=== PATIENT | female | born 1935 | race African-American/Black ===

== ENCOUNTER 2017-02-21 10:02 | Inpatient (IN) ==
[2017-02-21] MEDS ORDERED: ASPIRIN 325 MG TABLET PO STA (10:58)
[2017-02-21] MEDS ORDERED: ENOXAPARIN 100 MG/ML SYRINGE SUBCUT STA (10:58)
--- NOTE | 2017-02-21 11:01 | EKG Report ---
Stationary ECG Study [facility] ER Test Date: 02/21/2017 10:30:45 AM Pat Name: MARGUERITE MAGALLANES Department: Room: Gender: F Etcher Machine: Maritza Ennis : 1935 Requested by: Star Falcon Order Number: [id number] Reading MD: JEREMIAH NAJERA Intervals [place] Rate: 70 P: 88 FL: 215 QRS: 76 QRSD: 83 T: 78 QT: 342 QTc: 364 Interpretive Statements SINUS RHYTHM WITH FIRST DEGREE AV BLOCK Electronically Signed On 02-21-17 17:17:43 CDT by JEREMIAH NAJERA [email or web address]
--- NOTE | 2017-02-21 11:14 | XRay Report ---
Exam: XR chest 1V portable Indication: Midline chest pain Comparison study: Prior chest radiograph 11/25/2016 Findings: Cardiac silhouette and mediastinal contours appear similar to prior. Elevation right hemidiaphragm is essentially unchanged. No definite focal consolidation, pneumothorax or pleural effusion. Impression: No acute cardiopulmonary process. No significant change from prior. PROCEDURE INTERPRETED AT [facility] DEPARTMENT OF RADIOLOGY Final Report Signed by: Fabien Wyatt
[2017-02-21 11:43] LABS: Basophils % 0.7 % (0.0-0.8); Eosinophils # 0.1 10*3/uL (0.0-0.87); Eosinophils % 2.1 % (0.00-10.9); Hematocrit 36.3 VOL% (35.7-47.0); Hemoglobin 11.6 GM/DL (12.0-16.0); Immature Granulocytes % 1.1 %; Immature Granulocytes Absolute 0.06 #; Lymphocytes # 0.9 10*3/uL (1.4-4.0); Lymphocytes % 17.4 % (21.3-54.2); Mean Corpuscular Hemoglobin 23 PG (27-34); Mean Corpuscular Volume 70.5 FL (87-102); Mean Platelet Volume 11.3 FL (9.6-12.0); Monocytes # 0.4 10*3/uL (0.11-0.8); Monocytes % 7.3 % (1.7-12.7); Neutrophils # 3.8 10*3/uL (1.4-7.4); Neutrophils % 71.4 % (38.7-73.9); Platelet Count 187 T/CUMM (130-400); Red Blood Count 5.15 MC/CUMM (3.8-5.5); Red Cell Distribution Width 15.2 % (9.3-17.3); White Blood Count 5.3 T/CUMM (4-12)
[2017-02-21 11:52] LABS: PT Patient Result 10.8 SECS
[2017-02-21] MEDS ORDERED: ENOXAPARIN 100 MG/ML SYRINGE SUBCUT ONE (11:52)
[2017-02-21] MEDS ORDERED: ASPIRIN 325 MG TABLET ONE (11:52)
[2017-02-21 12:12] LABS: Alanine Aminotransferase 15 U/L (13-56); Albumin 3.5 G/DL (3.4-5.0); Alkaline Phosphatase 103 U/L (45-117); Aspartate Amino Transferase 10 U/L (0-37); Bilirubin,Total < 0.39 MG/DL (0.2-1.0); Blood Urea Nitrogen 21 MG/DL (7-18); Calcium 8.9 MG/DL (8.5-10.1); Glucose 324 MG/DL (74-106); Magnesium 1.7 MG/DL (1.8-2.4); Osmolality,Calculated 294.4 MOS/KG (273-304); Potassium 3.4 MMOL/L (3.5-5.1); Sodium 140 MMOL/L (136-145); Total Protein 7.4 G/DL (6.4-8.3)
--- NOTE | 2017-02-21 12:34 | Emergency Department Note ---
Venkata Calderón Rolonda, am scribing for, and in the presence of, Star Rodriguez MD 11:12. Jennifer Calderón Phillip K, MD, personally performed the services described in this documentation, ascribed by Jaqui Hastings in my presence, and it is both accurate and complete . Arrival - Arrival Chief Complaint: Chest Pain Stated Complaint: FEELS WEAK,FATIGUE, CHEST PAIN ED Nursing Triage Note: pt ambulatory to triage with c/o having chest pain onset last . pt states having pain to left shoulder and between shoulder blades, pt states she is weak and gives out and cant walk very far. Mode of Arrival: Ambulatory Limitations: No Limitations Source: Patient, Old Records Reviewed, RN Notes Reviewed Time Seen by Provider: 02/21/17 10:48 - History of Present Illness HPI Narrative: Pt is an 81 y/o female who ambulated to the ED for further evaluation of chest pain with an onset of x5 days ago. Pt has a PMHx of SVT, HTN, DM, and HLD. Pt has a PSHx of hysterectomy and a stress test. Nurses' note states that pt is weak and cannot ambulate very far due to "giving out." She confirms that nothing worsens that pain and has associated sxs sweating but denies fever, chills, cough, and lower extremity swelling. Pt is f/u by Dr. Cardozo. No other complaint/pain in ED. Onset (ago): day(s) Consistency: constant Severity: moderate Severity scale (1-10): 5 Date of Last Menstrual Period: hyst Allergies/Adverse Reactions: Allergies Allergy/AdvReac Type Severity Reaction Status Date / Time No Known Allergies Allergy Verified 02/21/17 10:25 Home Medications: Home Medications Medication Instructions Recorded Confirmed Type Carvedilol [Coreg] 25 mg PO BID 11/25/16 02/21/17 History Digoxin 250 mcg PO DAILY 11/25/16 02/21/17 History Insulin Detemir [Levemir FlexPen] 20 unit SUBCUT QAM 11/25/16 02/21/17 History Lisinopril 20 mg PO BID 11/25/16 02/21/17 History Lovastatin 40 mg PO DAILY 11/25/16 02/21/17 History Metformin HCl 1,000 mg PO BID 11/25/16 02/21/17 History NIFEdipine [Nifedipine ER] 30 mg PO BEDTIME 11/25/16 02/21/17 History Levothyroxine Tab [Synthroid Tab] 50 mcg PO QAM 02/21/17 02/21/17 History Review of System - Review of System 12 point system: reviewed and no additional remarkable complaints except as stated - Review of System Constitutional: Present: diaphoresis. Absent: chills, fever Eyes: Absent: pain, redness Head/Ears/Nose/Throat: Absent: earache, epistaxis Respiratory: Absent: cough Cardiovascular: Present: chest pain Gastrointestinal: Absent: abdominal pain, nausea, vomiting, diarrhea Genitourinary female: Absent: dysuria Musculoskeletal: Absent: arm pain, back pain, leg pain, neck pain Skin: Absent: rash Neurological: Absent: headache, weakness Psychiatric: Absent: anxiety Medical,Surgical,& Family Hx - Medical History Cardio: History of: Cardiac Dysrhythmia (tachycardia), Hypertension Endocrine: History of: Diabetes Mellitus (IDDM), Dyslipidemia - Surgical History Reproductive Surgeries: Surgical HX of;: Hysterectomy - Social History Smoking Status: Former smoker Frequency of Alcohol Use: None Type of Drug Use: None Exam Vital Signs: Vital Signs Temperature 97.9 F 02/21/17 10:21 Pulse Rate 74 02/21/17 10:21 Respiratory Rate 18 02/21/17 10:21 Blood Pressure 138/60 02/21/17 10:21 O2 Sat by Pulse Oximetry 99 02/21/17 10:21 - General General appearance: alert, in no apparent distress - Head Head exam: Present: atraumatic, normocephalic - Eye Eye exam: Present: PERRL, EOMI - ENT ENT exam: Present: mucous membranes moist. Absent: mucous membranes dry - Neck Neck exam: Present: full ROM. Absent: tenderness - Chest Chest inspection: Present: symmetric chest wall rise. Absent: tenderness - Respiratory Respiratory exam: Present: normal lung sounds bilaterally. Absent: wheezes - Cardiovascular Cardiovascular exam: Present: regular rate, normal rhythm, normal heart sounds. Absent: bradycardia - Abdominal Exam Abdominal exam: Present: soft, normal bowel sounds. Absent: tenderness - Extremities Exam Extremities exam: Present: full ROM. Absent: tenderness - Back Exam Back exam: Present: full ROM. Absent: tenderness - Neurological Exam Neurological exam: Present: alert, oriented X3, CN II-XII intact - Psychiatric Psychiatric exam: Present: normal affect, normal mood - Skin Skin exam: Present: warm, dry, intact, normal color. Absent: rash Course Course Narrative: Patient will be admitted to Dr. Cardozo and cardiology consult. Results - Labs CBC & BMP: 02/21/17 11:38 02/21/17 11:38 Lab Results: I have reviewed the patients labs Labs: Laboratory Tests 02/21/17 02/21/17 11:38 11:38 WBC 5.3 RBC 5.15 Hgb 11.6 L Hct 36.3 MCV 70.5 L MCH 23 L Plt Count 187 Lymph % (Auto) 17.4 L Lymph # (Auto) 0.9 L INR 1.0 PT Patient/Control Mix 10.8 Laboratory Tests 02/21/17 11:38 Sodium 140 Potassium 3.4 L Chloride 104 Carbon Dioxide 24 Anion Gap 15.4 H BUN 21 H Creatinine 1.30 H GFR Calculation 41 Glucose 324 H Magnesium 1.7 L Globulin 3.9 H Albumin/Globulin Ratio 0.8 L - EKG EKG results: interpreted by GUCCI, sinus rhythm (Nonspecific ST-T changes inferior and lateral leads.) - Diagnostic Findings Procedure: Chest x-ray: report reviewed by me (No acute cardiopulmonary process. No significant change from prior.) Disposition Clinical Impression: Chest pain, Rule out unstable angina Case discussed with: patient Disposition: Still a Patient Condition: Guarded Additional Instructions: Admit for further workup.
[2017-02-21] MEDS ORDERED: ONDANSETRON 4 MG/2 ML VIAL IV PRN (14:13)
[2017-02-21] MEDS ORDERED: ACETAMINOPHEN 325 MG TABLET PO PRN (14:13)
--- NOTE | 2017-02-21 16:42 | Internal Med History&Physical ---
Assessment and Plan (1) Chest pain Status: Acute Assessment and plan: 81-year-old female admitted to acute care * Chest pain. Patient presents with atypical type chest pain. It has been going on for several days. Her enzymes have been negative. She has nonspecific EKG changes. She does have history of sinus tachycardia in the past and has been on digoxin. Her dig level is high. Her symptoms could be also related to orthostatic changes. Will check her blood pressure lying and standing. Will consult cardiology to evaluate the patient. * Hypertension. Blood pressure has been on the higher side. Will watch. * Diabetes. Will hold her Metformin. We will start her on sliding scale * Hypokalemia. Will replace her potassium and mag * Will check urinalysis on the patient. Will also do a set of blood cultures. * Hypothyroidism. Will check TSH on the patient * Discussed with the patient Current Visit: Yes (2) Diabetes Status: Chronic Current Visit: Yes (3) History of paroxysmal supraventricular tachycardia Status: Chronic Current Visit: Yes (4) Hyperlipidemia Status: Chronic Current Visit: Yes (5) Hypertension Status: Chronic Current Visit: Yes (6) Hypothyroidism Status: Chronic Current Visit: Yes History of Present Illness Chief complaint: Chest discomfort History of present illness: Ms. Saeed is a 81 year old female with history of multiple medical problems including diabetes, hypertension, hypothyroidism, hyperlipidemia, gastroesophageal reflux disease and previous tachycardia. She came to the emergency room with chest and left shoulder discomfort off and on for last 4-5 days. He is having pain in the left shoulder and between the shoulder blades. She feels quite weak and is having difficulty walking more than short distances. She feels like she is going to give out. There is no relieving or aggravating factors with her pain. It is associated with sweating. She denies any fever chills. She denies any nausea, vomiting, diarrhea. Her blood sugars have been doing fairly well. Patient lives alone at home. She used to drink and smoke in the remote past Home Medications Medication Instructions Recorded Confirmed Type Carvedilol [Coreg] 25 mg PO BID 11/25/16 02/21/17 History Digoxin 250 mcg PO DAILY 11/25/16 02/21/17 History Insulin Detemir [Levemir FlexPen] 20 unit SUBCUT QAM 11/25/16 02/21/17 History Lisinopril 20 mg PO BID 11/25/16 02/21/17 History Lovastatin 40 mg PO DAILY 11/25/16 02/21/17 History Metformin HCl 1,000 mg PO BID 11/25/16 02/21/17 History NIFEdipine [Nifedipine ER] 30 mg PO BEDTIME 11/25/16 02/21/17 History Levothyroxine Tab [Synthroid Tab] 50 mcg PO QAM 02/21/17 02/21/17 History Allergies Allergy/AdvReac Type Severity Reaction Status Date / Time No Known Allergies Allergy Verified 02/21/17 10:25 Medical,Surgical,& Family Hx - Medical History Cardio: History of: Cardiac Dysrhythmia (tachycardia), Hypertension Endocrine: History of: Diabetes Mellitus (IDDM), Dyslipidemia Respiratory: History of: Respiratory Problems (lung mass surgery) Gastrointestinal: History of: GERD Musculoskeletal: History of: Musculoskeletal Problems (arthritis) - Surgical History Thoracic Surgeries: Surgical HX of;: Lobectomy (Patient had a wedge resection of her right lung in the past it was benign) HEENT Surgeries: Surgical HX of: Eye Surgery (Bilateral cataract surgery), Thyroid Surgery (Goiter removed) Reproductive Surgeries: Surgical HX of;: Hysterectomy - Family History Family History: Reports;: Family Diabetes (Brother), Family Heart Disease ( Mother), Family Hypertension (Brother), Family Stroke - Social History Smoking Status: Former smoker Frequency of Alcohol Use: None Type of Drug Use: None Marital Status: Single Lives With:: Alone Functional capacity: independent ambulation 12 point system: reviewed and no additional remarkable complaints except as stated (As mentioned in HPI) Exam - Constitutional Vitals: Period Temp Pulse Resp BP Sys/Mckeon Pulse Ox Last 24 Hr 97.7 F-97.9 F 58-74 12-22 138-194/60-84 99-100 Exam: Examination: GENERAL: NAD. HEENT: PERRLA. EOMI. Mucous membranes are moist. NECK: Neck is supple. No JVD. No carotid bruit. No thyromegaly. CVS: Regular rate and rhythm. S1 and S2 are normal. Systolic ejection at left lower sternal border. RESPIRATORY: Lungs are clear. No rales or rhonchi. ABDOMEN: Soft and nontender. Bowel sounds are present. No hepatosplenomegaly. EXT: No edema. Peripheral pulses are present. DIRECTOR OF GRADUATE ADMISSIONS: Patient is awake, alert and oriented to time place and person. Cranial nerves II through XII are grossly intact. Motor strength is 4/5 SKIN: Warm and dry. MSK: No obvious deformity. Results - Labs CBC & BMP: 02/21/17 11:38 02/21/17 11:38 Lab Results: I have reviewed the past 24 hour labs
[2017-02-21] MEDS ORDERED: GLUCAGON 1 MG VIAL IM PRN (16:50)
[2017-02-21] MEDS ORDERED: DEXTROSE 50% 25 GM/50 ML VIAL IV PRN (16:50)
[2017-02-21] MEDS ORDERED: cloNIDine 0.1 MG TABLET PO PRN (17:02)
[2017-02-21 17:44] LABS: Apearance,Urine CLEAR (Clear); Bilirubin,Urine Negative (Negative); Blood, Urine Negative (Negative); Glucose,Urine (UA) >=500 mg/dL (Negative); Ketones,Urine Negative (Negative); Nitrite,Urine Negative (Negative); Protein,Urine 30 MG/DL; RBC,Urine <1 /HPF (0-4); Squamous Epithelial Cell,Urine Occasional /HPF (0-10); Urine Color Colorless (Yellow); Urine Specific Gravity 1.005 (1.001-1.035); Urine Urobilinogen < 2.0 EU/DL (0.2-1.0); WBC,Urine <1 /HPF (0-6)
[2017-02-21 19:35] LABS: Free T4 (Free Thyroxine) 1.18 NG/DL (0.76-1.46); Thyroid Stimulating Hormone 0.576 uIU/ml (0.358-3.74)
[2017-02-21] MEDS: CARVEDILOL 25 MG TABLET PO SCH (22:01)
[2017-02-21] MEDS: MAGNESIUM CHLORIDE 64 MG TABLET PO SCH (22:01)
[2017-02-21] MEDS: LISINOPRIL 20 MG TABLET PO SCH (22:01)
[2017-02-21] MEDS: POTASSIUM CHLORIDE 8 MEQ CAPSULE PO SCH (22:01)
[2017-02-21] MEDS: DOCUSATE SODIUM 100 MG CAPSULE PO SCH (22:01)
[2017-02-21] MEDS: INSULIN LISPRO 100 UNIT/ML SUBCUT SCH (22:11)
[2017-02-22 05:27] LABS: Basophils % 0.7 % (0.0-0.8); Eosinophils # 0.2 10*3/uL (0.0-0.87); Eosinophils % 3.7 % (0.00-10.9); Hematocrit 32.1 VOL% (35.7-47.0); Hemoglobin 10.4 GM/DL (12.0-16.0); Immature Granulocytes % 1.3 %; Immature Granulocytes Absolute 0.06 #; Lymphocytes # 1.1 10*3/uL (1.4-4.0); Lymphocytes % 24.1 % (21.3-54.2); Mean Corpuscular HGB Conc 32.4 GM/DL (32-36); Mean Corpuscular Hemoglobin 23 PG (27-34); Mean Corpuscular Volume 70.1 FL (87-102); Mean Platelet Volume 12.1 FL (9.6-12.0); Monocytes # 0.4 10*3/uL (0.11-0.8); Monocytes % 8.9 % (1.7-12.7); Neutrophils # 2.8 10*3/uL (1.4-7.4); Neutrophils % 61.3 % (38.7-73.9); Platelet Count 175 T/CUMM (130-400); Red Blood Count 4.58 MC/CUMM (3.8-5.5); White Blood Count 4.6 T/CUMM (4-12)
[2017-02-22 05:54] LABS: Hypochromasia 2+; Microcytosis 1+; Ovalocytes Few; Platelet Estimate Adequate
[2017-02-22 05:55] LABS: Calcium 8.8 MG/DL (8.5-10.1); Potassium 3.5 MMOL/L (3.5-5.1)
--- NOTE | 2017-02-22 06:01 | EKG Report ---
Stationary ECG Study [facility] ER Test Date: 02/21/2017 1:49:01 PM Pat Name: MARGUERITE MAGALLANES Department: Room: 288 Gender: F Binder Lockstitch: : 1935 Requested by: Star Falcon Order Number: [id number] Manny MD: ZAY HUSSEIN Intervals [place] Rate: 69 P: 87 NE: 244 QRS: 75 QRSD: 93 T: 70 QT: 350 QTc: 368 Interpretive Statements SINUS RHYTHM WITH PROLONGED NE INTERVAL Electronically Signed On 02-22-17 09:26:34 CDT by ZAY HUSSEIN [email or web address]
[2017-02-22] MEDS: LEVOTHYROXINE 50 MCG TABLET PO SCH (06:56)
[2017-02-22] MEDS: DOCUSATE SODIUM 100 MG CAPSULE PO SCH ×2 (09:38→21:25)
[2017-02-22] MEDS: LOVASTATIN 20 MG TABLET PO SCH (09:38)
[2017-02-22] MEDS: PANTOPRAZOLE 40 MG TABLET PO SCH (09:38)
[2017-02-22] MEDS: MAGNESIUM CHLORIDE 64 MG TABLET PO SCH ×2 (09:39→21:25)
[2017-02-22] MEDS: POTASSIUM CHLORIDE 8 MEQ CAPSULE PO SCH ×2 (09:39→21:25)
[2017-02-22] MEDS: LISINOPRIL 20 MG TABLET PO SCH ×2 (09:39→21:25)
[2017-02-22] MEDS: INSULIN GLARGINE 100 UNIT/ML SUBCUT SCH (09:40)
[2017-02-22] MEDS: INSULIN LISPRO 100 UNIT/ML SUBCUT SCH ×4 (09:41→21:26)
--- NOTE | 2017-02-22 09:52 | Internal Med Progress Note ---
Assessment and Plan (1) Chest pain Status: Acute Assessment and plan: 81-year-old female admitted to acute care * Chest pain. Atypical pain. Initial enzymes negative. Cardiology consult pending * Hypertension. Better control * Diabetes. Will hold her Metformin. We will start her on sliding scale * Hypokalemia. Better. Dig level is still high * Will check urinalysis on the patient. Will also do a set of blood cultures. * Hypothyroidism. Continue medication * Discussed with the patient and family member Current Visit: Yes (2) Diabetes Status: Chronic Current Visit: Yes (3) History of paroxysmal supraventricular tachycardia Status: Chronic Current Visit: Yes (4) Hyperlipidemia Status: Chronic Current Visit: Yes (5) Hypertension Status: Chronic Current Visit: Yes (6) Hypothyroidism Status: Chronic Current Visit: Yes Internal Medicine - PN: Subj Interval history: She is feeling much better today. She does not have any pressure or pain in her chest. She denies any nausea or vomiting Exam (Progress Note) - Constitutional Vitals: Period Temp Pulse Resp BP Sys/Mckeon Pulse Ox Last 24 Hr 97.1 F-98.4 F 58-76 12-22 104-194/53-84 97-100 Exam: Examination: GENERAL: NAD. HEENT: PERRLA. EOMI. NECK: Neck is supple. CVS: Regular rate and rhythm. Systolic ejection at left lower sternal border. RESPIRATORY: Lungs are clear. ABDOMEN: Soft and nontender. EXT: No edema. Peripheral pulses are present. FAMILY CONSUMER SCIENCE TEACHER: Nonfocal SKIN: Warm and dry. MSK: No obvious deformity. Results - Labs CBC & BMP: 02/22/17 04:49 02/22/17 04:49 Lab Results: I have reviewed the past 24 hour labs
[2017-02-22] MEDS: CARVEDILOL 25 MG TABLET PO SCH ×2 (09:53→21:25)
--- NOTE | 2017-02-22 10:00 | Cardiology Consult Note ---
Jimmy Calderón Vanessa, RN, am scribing for, and in the presence of, Lazaro Zimmer MD 09:59. Assessment and Plan - Time spent with patient Time spent with patient: Greater than 30 minutes (Due to assessment, planning, documentation, medication review) (1) Chest pain Status: Acute Assessment and plan: EKG and lab work negative for ischemic finding at this time. We will follow serial cardiac biomarkers and check EKG in the morning. Current Visit: Yes (2) Hypertension Status: Chronic Assessment and plan: Review of records shows that BP has been relatively well controlled on current regimen. However, she is hypertensive today. Will adjust antihypertensive regimen as needed. Current Visit: Yes (3) Hyperlipidemia Status: Chronic Assessment and plan: Routinely takes lipid-lowering agent. Will check lipid panel in the morning. Current Visit: Yes (4) Diabetes Status: Chronic Assessment and plan: Glucose 324 per blood work earlier in the ER. Will defer primary management to internal medicine. Current Visit: Yes (5) History of paroxysmal supraventricular tachycardia Status: Chronic Assessment and plan: She does have occasional palpitations, but this is been controlled with digoxin. Digoxin currently on hold. Digoxin level 2.5 today. Follow-up in the morning. Current Visit: Yes (6) Hypothyroidism Status: Chronic Assessment and plan: She routinely takes Synthroid. Check TSH. Current Visit: Yes History of Present Illness - Data of Consult Patient: known to practice within the last 3 years Consult date: 02/21/17 Requesting Physician: Star Rodriguez - Consult Narrative Reason for consult: chest pain History of present illness: PRIMARY BENCH REPAIR TECHNICIAN:DR. SNYDER PCP: DR. HERNANDEZ Ms. Saeed is a 81 year old black female risk factors significant for: age, hypertension, hyperlipidemia. She is a former smoker and quit smoking in 1996. Family history includes a sister who has had previous coronary artery bypass grafting. Past medical history include paroxysmal SVT, hypothyroidism and hyperparathyroidism, anemia, aortic sclerosis, dyspepsia. She was last seen at [facility] by Dr. Snyder in August 2016. Blood pressure and lipids were well controlled on current regimen. She complained of some palpitations and arthritic pain in her knees. She was not having any chest pain or anginal complaint, and she was not having any overt symptoms of heart failure. Patient presented to [facility] earlier this morning complaining of chest pain with onset 5 days ago. Described this chest pain as being located in her left shoulder and sometimes epigastric area. Discomfort has been nonradiating, and she has not had any associated symptoms. Patient was admitted to the telemetry unit for observation and rule out, but as there are no beds currently available on the telemetry floor, patient is being housed in the ICU. Patient is not a critical care patient at this time. Cardiology has been asked to see for cardiac workup. EKG and cardiac monitoring reveals some nonspecific ST-T changes but there is no acute ischemic finding and tracings are unchanged from EKG in August. Last echocardiogram on record in July 2015 with normal LV size and systolic function with EF 60-65%, normal diastolic dysfunction, mildly enlarged LA, normal size and function of RV and RA, trace MR and TR, but no significant valvular disease. Myocardial perfusion scan in July 2013 also showed normal LV function and there were no EKG changes or evidence of ischemia. Patient seen and examined in the ICU. She is awake and alert, and she is very pleasant and talkative, somewhat anxious. Denies any current chest pain or shortness of breath. Since arrival to the unit, she is noted to be hypertensive with current BP 187/79. Bedside groundwater monitoring technician shows intermittent bradycardia in the 50s, regular rhythm. Reports she takes her antihypertensives as prescribed without fail. Patient reports she has been very fatigued since also, and she is unable to walk short distances without feeling dyspneic on exertion. She tells me her bathroom is "a hop and a skip" away from her better, and she is having to sit down and rest with this minimal exertion. Unable to identify any aggravating or leading factors for her left shoulder pain and epigastric pain. Reports she has been nauseated daily for about the last week but no vomiting. No cough, fever, chills. No orthopnea, PND, lower extremity edema. Labs reviewed. K+ 3.4, MG +1.7, troponin undetectable, digoxin 2.5. Digoxin is on hold. Patient with exertional dyspnea fatigue nausea found to have a toxic dig level. We are holding her Lanoxin and will check an echo to be certain if not evidence of LV dysfunction that could be explaining some of her symptoms. Her blood pressures are unacceptably high I think at least partly related to stress and anxiety. She is improving and probably can be discharged the next several days. There is not any objective evidence that she is having ischemia. EKG shows dig effect but otherwise is unrevealing. I have discussed in detail the particulars of this case and I have examined the patient and reviewed the patient's chart both current and old. I was directly involved in the patient's evaluation and management and I completely agree with Rosa Isela Weston NP regarding this patient's evaluation and treatment plan. CC: Chuy Hernandez MD - Home Medications and Allergies Home Medications: Home Medications Medication Instructions Recorded Confirmed Type Carvedilol [Coreg] 25 mg PO BID 11/25/16 02/21/17 History Digoxin 250 mcg PO DAILY 11/25/16 02/21/17 History Insulin Detemir [Levemir FlexPen] 20 unit SUBCUT QAM 11/25/16 02/21/17 History Lisinopril 20 mg PO BID 11/25/16 02/21/17 History Lovastatin 40 mg PO DAILY 11/25/16 02/21/17 History Metformin HCl 1,000 mg PO BID 11/25/16 02/21/17 History NIFEdipine [Nifedipine ER] 30 mg PO BEDTIME 11/25/16 02/21/17 History Levothyroxine Tab [Synthroid Tab] 50 mcg PO QAM 02/21/17 02/21/17 History Allergies/Adverse Reactions: Allergies Allergy/AdvReac Type Severity Reaction Status Date / Time No Known Allergies Allergy Verified 02/21/17 10:25 - Constitutional Constitutional: Present: fatigue, weakness. Absent: anorexia, chills, fever(s) , frequent falls, increased appetite, night sweats, weight gain, weight loss - EENT Eyes: Present: requires corrective lense. Absent: blurry vision, loss of vision Ears: Absent: decreased hearing Nose, mouth and throat: Present: sinus pressure. Absent: dysphagia, epistaxis, throat swelling, tongue swelling - Cardiovascular Cardiovascular: Present: dyspnea on exertion. Absent: chest pain at rest, chest pain with activity, claudication, diaphoresis, dyspnea, edema, radiating jaw, neck or arm pain, lightheadedness, orthopnea, palpitations, PND - Respiratory Respiratory: Present: dyspnea on exertion. Absent: cough, dyspnea, hemoptysis, wheezing, change in phlegm color - Gastrointestinal Gastrointestinal: Present: dyspepsia, heartburn, nausea. Absent: constipation, diarrhea, dysphagia, hematemesis, hematochezia, melena, vomiting - Genitourinary Genitourinary: Absent: abnormal vaginal bleeding, dysuria, flank pain, hematuria - Musculoskeletal Musculoskeletal: Absent: arthralgias - Neurological Neurological: Absent: abnormal gait, abnormal speech, confusion, dizziness, syncope, tremor(s) - Psychiatric Psychiatric: Present: anxiety, depression - Endocrine Endocrine: Absent: cold intolerance, heat intolerance - Hematologic/Lymphatic Hematologic/Lymphatic: Absent: easy bleeding, easy bruising Medical,Surgical,& Family Hx - Medical History Cardio: History of: Cardiac Dysrhythmia (tachycardia), Hypertension No history of: CHF, CAD, NC, PVD, Valvular Heart Disease Psychological: History of: Depression Neurology: No history of: Cerebrovascular Accident, Dementia, TIA Endocrine: History of: Diabetes Mellitus (IDDM), Dyslipidemia, Thyroid Disorder Respiratory: History of: Respiratory Problems (lung mass surgery) No history of: Asthma, Bronchitis, COPD, Obstructive Sleep Apnea, Pulmonary Hypertension Renal: History of: Renal Problems (Kidney mass; followed by Dr. Boothe) Gastrointestinal: No history of: Esophageal Varices, Gastrointestinal Bleed, Pancreatitis Musculoskeletal: History of: Musculoskeletal Problems (arthritis) No history of: Degenerative Disk Disease Hematology: History of: Anemia No history of: Blood Transfusion Reaction Reproductive: No history of: Breast Cancer Other: No history of: Cancer - Surgical History Cardiac Surgeries: Patient Denies: Cardiac Catheterization HEENT Surgeries: Surgical HX of: Eye Surgery (cataract) Reproductive Surgeries: Surgical HX of;: Hysterectomy - Social History Smoking Status: Former smoker Frequency of Alcohol Use: None Type of Drug Use: None Functional capacity: independent ambulation Physical Examination Vital Signs Temp Pulse Resp BP Pulse Ox 97.9 F 74 18 138/60 99 02/21/17 10:21 02/21/17 10:21 02/21/17 10:21 02/21/17 10:21 02/21/17 10:21 General: Present: No Apparent Distress, Other (Pleasant and talkative) HEENT: Present: PERRL, Normocephaly. Absent: Jaundice, Pallor Neck: Present: Supple Neck, Midline Trachea, No JVD/HJR, No Masses, Bruit Cardiac: Present: Reg Rate and Rhythm, Systolic Murmur, Bradycardia. Absent: Tachycardia Result/EKG - Labs CBC & BMP: 02/22/17 04:49 02/22/17 04:49 Lab Results: I have reviewed the past 24 hour labs Labs: Laboratory Results - last 24 hr 02/21/17 02/21/17 02/21/17 11:38 11:38 11:38 WBC RBC Hgb Hct MCV MCH MCHC RDW Plt Count MPV Neut % (Auto) Lymph % (Auto) [place] % (Auto) Eos % (Auto) Baso % (Auto) Neut # (Auto) Lymph # (Auto) [place] # (Auto) Eos # (Auto) Baso # (Auto) Immature Gran % Nucleated RBC % Immature Gran # Nucleated RBCs # INR 1.0 PT Patient/Control Mix 10.8 Sodium 140 Potassium 3.4 L Chloride 104 Carbon Dioxide 24 Anion Gap 15.4 H BUN 21 H Creatinine 1.30 H GFR Calculation 41 BUN/Creatinine Ratio 16.00 Glucose 324 H POC Glucose Calculated Osmolality 294.4 Calcium 8.9 Magnesium 1.7 L Total Bilirubin < 0.39 AST 10 ALT 15 Alkaline Phosphatase 103 Troponin I Total Protein 7.4 Albumin 3.5 Globulin 3.9 H Albumin/Globulin Ratio 0.8 L Digoxin 2.50 H* 02/21/17 02/21/17 02/21/17 11:38 11:38 14:42 WBC 5.3 RBC 5.15 Hgb 11.6 L Hct 36.3 MCV 70.5 L MCH 23 L MCHC 32.0 RDW 15.2 Plt Count 187 MPV 11.3 Neut % (Auto) 71.4 Lymph % (Auto) 17.[address] [place] % (Auto) 7.3 Eos % (Auto) 2.1 Baso % (Auto) 0.7 Neut # (Auto) 3.8 Lymph # (Auto) 0.[address] [place] # (Auto) 0.4 Eos # (Auto) 0.1 Baso # (Auto) 0.0 Immature Gran % 1.1 Nucleated RBC % 0.0 Immature Gran # 0.06 Nucleated RBCs # 0.00 INR PT Patient/Control Mix Sodium Potassium Chloride Carbon Dioxide Anion Gap BUN Creatinine GFR Calculation BUN/Creatinine Ratio Glucose POC Glucose 310 H Calculated Osmolality Calcium Magnesium Total Bilirubin AST ALT Alkaline Phosphatase Troponin I < 0.015 Total Protein Albumin Globulin Albumin/Globulin Ratio Digoxin - Diagnostic Findings Procedure: Chest x-ray: image reviewed by me, report reviewed by me (02/21/17: No acute cardiopulmonary process) - EKG EKG results: interpreted by me, no acute changes EKG shows: sinus rhythm IGoran Wesley, MD, personally performed the services described in this documentation, ascribed by Rachelle Marquez RN in my presence, and it is both accurate and complete [id number] .
--- NOTE | 2017-02-22 15:09 | Cardiology Progress Note ---
<Rosa Isela Weston - Last Filed: 02/22/17 14:54> Assessment and Plan - Time spent with patient Time spent with patient: Less than 30 minutes (1) Chest pain Status: Acute Assessment and plan: See plan of care listed below. Current Visit: Yes (2) Hypertension Status: Chronic Assessment and plan: See plan of care listed below. Current Visit: Yes (3) Hyperlipidemia Status: Chronic Assessment and plan: See plan of care listed below. Current Visit: Yes (4) Diabetes Status: Chronic Assessment and plan: See plan of care listed below. Current Visit: Yes (5) History of paroxysmal supraventricular tachycardia Status: Chronic Assessment and plan: See plan of care listed below. Current Visit: Yes (6) Hypothyroidism Status: Chronic Assessment and plan: See plan of care listed below. 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 SNYDER PCP: DR. HERNANDEZ SUMMARY: Ms. Saeed is a 81 year old black female with a history of paroxysmal SVT, hypothyroidism and hyperparathyroidism, anemia, aortic sclerosis, dyspepsia who presented to the hospital with complaints of chest pain, onset 5 days ago. Cardiology was asked to see for cardiac workup. EKG and cardiac monitoring reveals some nonspecific ST-T changes but there is no acute ischemic finding and tracings are unchanged from EKG in August. Last echocardiogram on record in July 2015 with normal LV size and systolic function with EF 60-65% , normal diastolic dysfunction, mildly enlarged LA, normal size and function of RV and RA, trace MR and TR, but no significant valvular disease. Myocardial perfusion scan in July 2013 also showed normal LV function and there were no EKG changes or evidence of ischemia. FEBRUARY 22, 2017 UPDATE: There is not any objective evidence that she is having ischemia. EKG shows dig effect but otherwise is unrevealing. She denies chest pain or shortness of breath today. Her blood pressures are unacceptably high I think at least partly related to stress and anxiety. BP 191/77 today, will increase her dose of Procardia to 60mg PO QHS. ASSESSMENT/PLAN: 1. CHEST PAIN - EKG and lab work negative for ischemic finding at this time. From a cardiology standpoint, when she is discharged, she will need to be scheduled for an outpatient stress test in 1 week with follow up with Dr. Snyder 1 week after stress test. 2. HYPERTENSION - Review of records shows that BP has been relatively well controlled on current regimen. However, she continues to have elevated BP readings today. Will monitor and adjust accordingly. 3. HYPERLIPIDEMIA - Continue lipid lowering agent. 4. DIABETES - Will defer primary management to internal medicine. 5. HISTORY OF PSVT - She does have occasional palpitations, but this is been controlled with digoxin. Digoxin currently on hold. Digoxin level 2.1 today. 6. HYPOTHYROIDISM - FT4/TSH normal, continue synthroid. Exam (Progress Note) - Constitutional Vitals: Period Temp Pulse Resp BP Sys/Mckeon Pulse Ox Last 24 Hr 97.1 F-98.4 F 58-76 12-20 104-191/53-79 97-100 Exam: General: Present: Appears Well, No Apparent Distress. Pleasant and cooperative. Appears comfortable. HEENT: Present: PERRL, Normocephaly, atraumatic. Mucus Membranes Moist. No jaundice noted. Conjunctiva moist and clear, sclerae anicteric Neck: Present: Supple Neck, Midline Trachea, No Masses, No Bruit, No tenderness Cardiac: Present: Regular Rate and Rhythm, Systolic Murmur Lungs: Present: Clear to auscultation bilaterally, no wheeze, rhonchi, rales. Neuro: Present: Awake, alert, and oriented x3. Moves all extremities well without hemiparesis or paralysis. Grossly Intact. Absent: Resting Tremor, Essential Tremor Abdomen: Present: Soft, Active Bowel Sounds, No Masses, Non-Tender, nondistended. No abdominal bruit or thrill noted. Skin: Present: Clear. Absent: Rash, No skin breakdown. Back: Normal inspection, no vertebral tenderness. Musculoskeletal: Present: No Fluid Collection, No Pain, Normal Range of Motion Extremities: Present: Normal Gait, No Clubbing, No Cyanosis, Upper Extr. Pulses 2+, Lower Extr. Pulses 2+, No edema. Capillary refill less than 3 seconds. Result/EKG - Labs CBC & BMP: 02/22/17 04:49 02/22/17 04:49 Lab Results: I have reviewed the past 24 hour labs Labs: Laboratory Results - last 24 hr 02/21/17 02/21/17 02/21/17 15:34 17:25 18:40 WBC RBC Hgb Hct MCV MCH MCHC RDW Plt Count MPV Neut % (Auto) Lymph % (Auto) [place] % (Auto) Eos % (Auto) Baso % (Auto) Neut # (Auto) Lymph # (Auto) [place] # (Auto) Eos # (Auto) Baso # (Auto) Immature Gran % Nucleated RBC % Immature Gran # Nucleated RBCs # Platelet Estimate Hypochromasia Microcytosis Ovalocytes Morphology Comment Sodium Potassium Chloride Carbon Dioxide Anion Gap BUN Creatinine GFR Calculation BUN/Creatinine Ratio Glucose POC Glucose Calculated Osmolality Calcium Troponin I < 0.015 < 0.015 Free T4 TSH 3rd Generation Urine Color Colorless Urine Appearance Clear Urine pH 6.0 Ur Specific Johnson 1.005 Urine Protein 30 Urine Glucose (UA) >=500 Urine Ketones Negative Urine Blood Negative Urine Nitrate Negative Urine Bilirubin Negative Urine Urobilinogen < 2.0 H Urine Leukocytes Negative Urine RBC <1 Urine WBC <1 Ur Squamous Epith Cells Occasional Ur Culture Indicated? Not indicated Digoxin 02/21/17 02/21/17 02/22/17 18:40 21:56 04:49 WBC 4.6 RBC 4.58 Hgb 10.4 L Hct 32.1 L MCV 70.1 L MCH 23 L MCHC 32.4 RDW 15.0 Plt Count 175 MPV 12.1 H Neut % (Auto) 61.3 Lymph % (Auto) 24.1 [place] % (Auto) 8.9 Eos % (Auto) 3.7 Baso % (Auto) 0.7 Neut # (Auto) 2.8 Lymph # (Auto) 1.1 L [place] # (Auto) 0.4 Eos # (Auto) 0.2 Baso # (Auto) 0.0 Immature Gran % 1.3 Nucleated RBC % 0.0 Immature Gran # 0.06 Nucleated RBCs # 0.00 Platelet Estimate Adequate Hypochromasia 2+ Microcytosis 1+ Ovalocytes Few Morphology Comment Sodium Potassium Chloride Carbon Dioxide Anion Gap BUN Creatinine GFR Calculation BUN/Creatinine Ratio Glucose POC Glucose 292 H Calculated Osmolality Calcium Troponin I Free T4 1.18 TSH 3rd Generation 0.576 Urine Color Urine Appearance Urine pH Ur Specific Johnson Urine Protein Urine Glucose (UA) Urine Ketones Urine Blood Urine Nitrate Urine Bilirubin Urine Urobilinogen Urine Leukocytes Urine RBC Urine WBC Ur Squamous Epith Cells Ur Culture Indicated? Digoxin 02/22/17 02/22/17 02/22/17 04:49 04:49 07:56 WBC RBC Hgb Hct MCV MCH MCHC RDW Plt Count MPV Neut % (Auto) Lymph % (Auto) [place] % (Auto) Eos % (Auto) Baso % (Auto) Neut # (Auto) Lymph # (Auto) [place] # (Auto) Eos # (Auto) Baso # (Auto) Immature Gran % Nucleated RBC % Immature Gran # Nucleated RBCs # Platelet Estimate Hypochromasia Microcytosis Ovalocytes Morphology Comment Sodium 143 Potassium 3.5 Chloride 106 Carbon Dioxide 29 Anion Gap 11.5 BUN 23 H Creatinine 0.90 GFR Calculation 63 BUN/Creatinine Ratio 25.00 H Glucose 207 H POC Glucose 321 H Calculated Osmolality 294.0 Calcium 8.8 Troponin I Free T4 TSH 3rd Generation Urine Color Urine Appearance Urine pH Ur Specific Johnson Urine Protein Urine Glucose (UA) Urine Ketones Urine Blood Urine Nitrate Urine Bilirubin Urine Urobilinogen Urine Leukocytes Urine RBC Urine WBC Ur Squamous Epith Cells Ur Culture Indicated? Digoxin 2.10 H* 02/22/17 11:03 WBC RBC Hgb Hct MCV MCH MCHC RDW Plt Count MPV Neut % (Auto) Lymph % (Auto) [place] % (Auto) Eos % (Auto) Baso % (Auto) Neut # (Auto) Lymph # (Auto) [place] # (Auto) Eos # (Auto) Baso # (Auto) Immature Gran % Nucleated RBC % Immature Gran # Nucleated RBCs # Platelet Estimate Hypochromasia Microcytosis Ovalocytes Morphology Comment Sodium Potassium Chloride Carbon Dioxide Anion Gap BUN Creatinine GFR Calculation BUN/Creatinine Ratio Glucose POC Glucose 382 H Calculated Osmolality Calcium Troponin I Free T4 TSH 3rd Generation Urine Color Urine Appearance Urine pH Ur Specific Johnson Urine Protein Urine Glucose (UA) Urine Ketones Urine Blood Urine Nitrate Urine Bilirubin Urine Urobilinogen Urine Leukocytes Urine RBC Urine WBC Ur Squamous Epith Cells Ur Culture Indicated? Digoxin - EKG EKG results: interpreted by me, sinus rhythm <Lazaro Zimmer - Last Filed: 02/22/17 15:40> Assessment and Plan (1) Chest pain Status: Acute Current Visit: Yes (2) Hypertension Status: Chronic Current Visit: Yes (3) Hyperlipidemia Status: Chronic Current Visit: Yes (4) Diabetes Status: Chronic Current Visit: Yes (5) History of paroxysmal supraventricular tachycardia Status: Chronic Current Visit: Yes (6) Hypothyroidism Status: Chronic Current Visit: Yes Cardiology - PN: Subj Interval history: I agree with increasing the Procardia and going to go ahead and go to 90 mg at bedtime see if we can get her pressures under better control. Because of increasing dyspnea and fatigue I am going to check another echocardiogram this admission. I think it is reasonable if she continues without significant rhythm issues to be discharged tomorrow. I have discussed in detail the particulars of this case and I have examined the patient and reviewed the patient's chart both current and old. I was directly involved in the patient's evaluation and management and I completely agree with Rosa Isela Weston NP regarding this patient's evaluation and treatment plan. Exam (Progress Note) - Constitutional Vitals: Period Temp Pulse Resp BP Sys/Mckeon Pulse Ox Last 24 Hr 97.1 F-98.4 F 58-76 16-20 104-191/53-79 97-100 Result/EKG - Labs CBC & BMP: 02/22/17 04:49 02/22/17 04:49 Labs: Laboratory Results - last 24 hr 02/21/17 02/21/17 02/21/17 15:34 17:25 18:40 WBC RBC Hgb Hct MCV MCH MCHC RDW Plt Count MPV Neut % (Auto) Lymph % (Auto) [place] % (Auto) Eos % (Auto) Baso % (Auto) Neut # (Auto) Lymph # (Auto) [place] # (Auto) Eos # (Auto) Baso # (Auto) Immature Gran % Nucleated RBC % Immature Gran # Nucleated RBCs # Platelet Estimate Hypochromasia Microcytosis Ovalocytes Morphology Comment Sodium Potassium Chloride Carbon Dioxide Anion Gap BUN Creatinine GFR Calculation BUN/Creatinine Ratio Glucose POC Glucose Calculated Osmolality Calcium Troponin I < 0.015 < 0.015 Free T4 TSH 3rd Generation Urine Color Colorless Urine Appearance Clear Urine pH 6.0 Ur Specific [place] 1.005 Urine Protein 30 Urine Glucose (UA) >=500 Urine Ketones Negative Urine Blood Negative Urine Nitrate Negative Urine Bilirubin Negative Urine Urobilinogen < 2.0 H Urine Leukocytes Negative Urine RBC <1 Urine WBC <1 Ur Squamous Epith Cells Occasional Ur Culture Indicated? Not indicated Digoxin 02/21/17 02/21/17 02/22/17 18:40 21:56 04:49 WBC 4.6 RBC 4.58 Hgb 10.4 L Hct 32.1 L MCV 70.1 L MCH 23 L MCHC 32.4 RDW 15.0 Plt Count 175 MPV 12.1 H Neut % (Auto) 61.3 Lymph % (Auto) 24.1 [place] % (Auto) 8.9 Eos % (Auto) 3.7 Baso % (Auto) 0.7 Neut # (Auto) 2.8 Lymph # (Auto) 1.1 L [place] # (Auto) 0.4 Eos # (Auto) 0.2 Baso # (Auto) 0.0 Immature Gran % 1.3 Nucleated RBC % 0.0 Immature Gran # 0.06 Nucleated RBCs # 0.00 Platelet Estimate Adequate Hypochromasia 2+ Microcytosis 1+ Ovalocytes Few Morphology Comment Sodium Potassium Chloride Carbon Dioxide Anion Gap BUN Creatinine GFR Calculation BUN/Creatinine Ratio Glucose POC Glucose 292 H Calculated Osmolality Calcium Troponin I Free T4 1.18 TSH 3rd Generation 0.576 Urine Color Urine Appearance Urine pH Ur Specific [place] Urine Protein Urine Glucose (UA) Urine Ketones Urine Blood Urine Nitrate Urine Bilirubin Urine Urobilinogen Urine Leukocytes Urine RBC Urine WBC Ur Squamous Epith Cells Ur Culture Indicated? Digoxin 02/22/17 02/22/17 02/22/17 04:49 04:49 07:56 WBC RBC Hgb Hct MCV MCH MCHC RDW Plt Count MPV Neut % (Auto) Lymph % (Auto) [place] % (Auto) Eos % (Auto) Baso % (Auto) Neut # (Auto) Lymph # (Auto) [place] # (Auto) Eos # (Auto) Baso # (Auto) Immature Gran % Nucleated RBC % Immature Gran # Nucleated RBCs # Platelet Estimate Hypochromasia Microcytosis Ovalocytes Morphology Comment Sodium 143 Potassium 3.5 Chloride 106 Carbon Dioxide 29 Anion Gap 11.5 BUN 23 H Creatinine 0.90 GFR Calculation 63 BUN/Creatinine Ratio 25.00 H Glucose 207 H POC Glucose 321 H Calculated Osmolality 294.0 Calcium 8.8 Troponin I Free T4 TSH 3rd Generation Urine Color Urine Appearance Urine pH Ur Specific [place] Urine Protein Urine Glucose (UA) Urine Ketones Urine Blood Urine Nitrate Urine Bilirubin Urine Urobilinogen Urine Leukocytes Urine RBC Urine WBC Ur Squamous Epith Cells Ur Culture Indicated? Digoxin 2.10 H* 02/22/17 11:03 WBC RBC Hgb Hct MCV MCH MCHC RDW Plt Count MPV Neut % (Auto) Lymph % (Auto) [place] % (Auto) Eos % (Auto) Baso % (Auto) Neut # (Auto) Lymph # (Auto) [place] # (Auto) Eos # (Auto) Baso # (Auto) Immature Gran % Nucleated RBC % Immature Gran # Nucleated RBCs # Platelet Estimate Hypochromasia Microcytosis Ovalocytes Morphology Comment Sodium Potassium Chloride Carbon Dioxide Anion Gap BUN Creatinine GFR Calculation BUN/Creatinine Ratio Glucose POC Glucose 382 H Calculated Osmolality Calcium Troponin I Free T4 TSH 3rd Generation Urine Color Urine Appearance Urine pH Ur Specific Johnson Urine Protein Urine Glucose (UA) Urine Ketones Urine Blood Urine Nitrate Urine Bilirubin Urine Urobilinogen Urine Leukocytes Urine RBC Urine WBC Ur Squamous Epith Cells Ur Culture Indicated? Digoxin
[2017-02-23 04:48] LABS: Basophils # 0.1 10*3/uL (0.0-0.2); Basophils % 0.9 % (0.0-0.8); Eosinophils # 0.2 10*3/uL (0.0-0.87); Eosinophils % 2.8 % (0.00-10.9); Hematocrit 31.7 VOL% (35.7-47.0); Hemoglobin 10.4 GM/DL (12.0-16.0); Immature Granulocytes % 0.9 %; Immature Granulocytes Absolute 0.05 #; Lymphocytes # 1.3 10*3/uL (1.4-4.0); Lymphocytes % 23.9 % (21.3-54.2); Mean Corpuscular HGB Conc 32.8 GM/DL (32-36); Mean Corpuscular Hemoglobin 23 PG (27-34); Mean Corpuscular Volume 69.7 FL (87-102); Mean Platelet Volume 11.6 FL (9.6-12.0); Monocytes # 0.5 10*3/uL (0.11-0.8); Neutrophils # 3.3 10*3/uL (1.4-7.4); Neutrophils % 62.5 % (38.7-73.9); Platelet Count 166 T/CUMM (130-400); Red Blood Count 4.55 MC/CUMM (3.8-5.5); White Blood Count 5.3 T/CUMM (4-12)
[2017-02-23 05:16] LABS: Calcium 8.8 MG/DL (8.5-10.1); Osmolality,Calculated 289.3 MOS/KG (273-304); Potassium 3.8 MMOL/L (3.5-5.1)
[2017-02-23] MEDS: LEVOTHYROXINE 50 MCG TABLET PO SCH (06:22)
--- NOTE | 2017-02-23 07:39 | ECHO Report ---
Christophe Fernanda 02/22/2017 Exam Date: 15:59 Referring Physician: Wanda Rg Technologist: MICAELA Age: 81 Ht (in): 61 Wt (lb): 129 FExam Location: [facility] Gender: Echo [id number]: Chest pain, unspecified, Essential Indications: hypertension, Hyperlipidemia, unspecified, Diabetes, hx PSVT, Hypothyroidism BP: 191 / 77 HR: 71 SinusRhythm: FairTechnical Quality: IMPRESSIONS Normal left ventricular cavity size. Normal left ventricular wall thickness. Left ventricular ejection fraction is estimated at 60 %. The right ventricle is normal in size and function. The right atrium is mildly enlarged. Moderately increased left atrial size. Mildly thickened mitral valve. Mild mitral valve regurgitation. Thickened aortic valve. No aortic valve stenosis. Mild aortic valve regurgitation. Morphologically normal tricuspid valve. Trace to mild tricuspid valve regurgitation. Tricuspid regurgitation velocities suggest a PAP of 35 mmHg. Morphologically normal pulmonic valve without significant stenosis. There is no pulmonic regurgitation. Normal pericardium without effusion. Normal ascending aorta dimension. MEASUREMENTS (Male / Female) Normal Values 2D ECHO LV Diastolic Diameter PLAX 3.4 cm 4.2 - 5.9 / 3.9 - 5.3 cm LV Systolic Diameter PLAX 2.2 cm LV Fractional Shortening PLAX 34.5 % IVS Diastolic Thickness 0.9 cm 0.6 - 1.0 / 0.6 - 0.9 cm LVPW Diastolic Thickness 0.9 cm 0.6 - 1.0 / 0.6 - 0.9 cm RV Internal Dim ED PLAX 2.8 cm Aortic Root Diameter 3.0 cm LA Systolic Diameter LX 2.6 cm 3.0 - 4.0 / 2.7 - 3.8 cm DOPPLER TR Peak Velocity 252.0 cm/s TR Peak Gradient 25.4 mmHg FINDINGS Left Ventricle Normal left ventricular cavity size. Normal left ventricular wall thickness. Left ventricular ejection fraction is estimated at 60 %. Right Ventricle The right ventricle is normal in size and function. Right Atrium The right atrium is mildly enlarged. Left Atrium Moderately increased left atrial size. Mitral Valve Mildly thickened mitral valve. Mild mitral valve regurgitation. Aortic Valve Thickened aortic valve. No aortic valve stenosis. Mild aortic valve regurgitation. Tricuspid Valve Morphologically normal tricuspid valve. Trace to mild tricuspid valve regurgitation. Tricuspid regurgitation velocities suggest a PAP of 35 mmHg. Pulmonic Valve Morphologically normal pulmonic valve without significant stenosis. There is no pulmonic regurgitation. Pericardium Normal pericardium without effusion. Aorta Normal ascending aorta dimension. Lazaro Zimmer MD (Electronically Signed) 23 February 2017 Final Date: 07:37
--- NOTE | 2017-02-23 08:00 | Discharge Summary ---
Hospital Course - Hospital Course Hospital Course: Patient is a 81-year-old female with history of hypertension, diabetes, hypothyroidism, hyperlipidemia, gastroesophageal reflux disease and previous SVT. She was admitted with chest discomfort and shoulder pain on the left side. This was going on for several days. She was found to be dig toxic with level over 2.5. She was evaluated with serial cardiac enzymes and EKGs. Cardiology saw her in consultation. They felt the pain was noncardiac. She had an echocardiogram which showed normal LV function. Her metformin was initially held. Her magnesium and potassium were replaced. Her nifedipine dose was increased because of elevated blood pressure. She has improved over last several days. Cardiology felt that she will get back to Dr. Snyder for an outpatient stress test. I have started her on Protonix because of reflux type symptoms. She is ready to be discharged home. I will see her back in office in about 10 days. Diagnosis - Discharge Diagnosis (1) Chest pain Status: Acute (2) Diabetes Status: Chronic (3) History of paroxysmal supraventricular tachycardia Status: Chronic (4) Hyperlipidemia Status: Chronic (5) Hypertension Status: Chronic (6) Hypothyroidism Status: Chronic Discharge Plan - Discharge Data Disposition: Disch To Home/Self Care Condition at Discharge: Stable Discharge Diet: advance to your usual diet Activity: resume usual activities as tolerated - Discharge Medications New Magnesium Chloride [Slow Mag] 64 mg PO BID #60 tablet Pantoprazole Tab [Protonix Tab] 40 mg PO DAILY #30 tablet Potassium Chloride Cap/Tab [Micro K] 8 meq PO BID #30 capsule Digoxin Tab [Lanoxin Tab] 0.125 mg PO DAILY@1300 #30 tablet NIFEdipine XL TAB [Procardia Xl] 90 mg PO BEDTIME #30 tablet Continue Lisinopril 20 mg PO BID Metformin HCl 1,000 mg PO BID Lovastatin 40 mg PO DAILY Insulin Detemir [Levemir FlexPen] 20 unit SUBCUT QAM Carvedilol [Coreg] 25 mg PO BID Levothyroxine Tab [Synthroid Tab] 50 mcg PO QAM Discontinued NIFEdipine [Nifedipine ER] 30 mg PO BEDTIME Digoxin 250 mcg PO DAILY - Follow Up or Referral - Forms/Instructions Additional Discharge Instructions: Appointment in office in 10 days with TCM. Check dig level and BMP and magnesium. Please call in her changed medications to pharmacy. Set up outpatient stress test with Dr. Snyder Exam - Constitutional Vitals: Period Temp Pulse Resp BP Sys/Mckeon Pulse Ox Last 24 Hr 97.5 F-98.7 F 67-106 16-20 115-191/60-97 95-100 Exam: Examination: GENERAL: NAD. NECK: Neck is supple. CVS: Regular rate and rhythm. Systolic ejection at left lower sternal border. RESPIRATORY: Lungs are clear. ABDOMEN: Soft and nontender. EXT: No edema. Peripheral pulses are present. DETAILER PHARMACE[employer]ICALS: Nonfocal SKIN: Warm and dry. MSK: No obvious deformity. Discharge Results Procedures and tests throughout hospitalization: Pending Orders 02/21/17 14:15 MRSA Surveillence, Inf Control Routine 02/21/17 18:41 Blood Culture Stat Labs on day of discharge: Labs from last 24 hours 02/23/17 02/23/17 02/23/17 07:52 04:15 04:15 WBC RBC Hgb Hct MCV MCH MCHC RDW Plt Count MPV Neut % (Auto) Lymph % (Auto) [place] % (Auto) Eos % (Auto) Baso % (Auto) Neut # (Auto) Lymph # (Auto) [place] # (Auto) Eos # (Auto) Baso # (Auto) Immature Gran % Nucleated RBC % Immature Gran # Nucleated RBCs # Sodium 141 Potassium 3.8 Chloride 105 Carbon Dioxide 27 Anion Gap 12.8 BUN 22 H Creatinine 1.00 GFR Calculation 56 BUN/Creatinine Ratio 22.00 H Glucose 213 H POC Glucose 281 H Calculated Osmolality 289.3 Calcium 8.8 Digoxin 1.90 02/23/17 02/22/17 02/22/17 04:15 20:18 18:24 WBC 5.3 RBC 4.55 Hgb 10.4 L Hct 31.7 L MCV 69.7 L MCH 23 L MCHC 32.8 RDW 15.0 Plt Count 166 MPV 11.6 Neut % (Auto) 62.5 Lymph % (Auto) 23.9 [place] % (Auto) 9.0 Eos % (Auto) 2.8 Baso % (Auto) 0.9 H Neut # (Auto) 3.3 Lymph # (Auto) 1.3 L [place] # (Auto) 0.5 Eos # (Auto) 0.2 Baso # (Auto) 0.1 Immature Gran % 0.9 Nucleated RBC % 0.0 Immature Gran # 0.05 Nucleated RBCs # 0.00 Sodium Potassium Chloride Carbon Dioxide Anion Gap BUN Creatinine GFR Calculation BUN/Creatinine Ratio Glucose POC Glucose 241 H 140 H Calculated Osmolality Calcium Digoxin 02/22/17 02/22/17 02/22/17 16:40 11:03 07:56 WBC RBC Hgb Hct MCV MCH MCHC RDW Plt Count MPV Neut % (Auto) Lymph % (Auto) [place] % (Auto) Eos % (Auto) Baso % (Auto) Neut # (Auto) Lymph # (Auto) [place] # (Auto) Eos # (Auto) Baso # (Auto) Immature Gran % Nucleated RBC % Immature Gran # Nucleated RBCs # Sodium Potassium Chloride Carbon Dioxide Anion Gap BUN Creatinine GFR Calculation BUN/Creatinine Ratio Glucose POC Glucose 48 L* 382 H 321 H Calculated Osmolality Calcium Digoxin Preliminary micro results at discharge 02/21/17 18:41 Blood Culture - Preliminary Blood No growth at 1 day 02/21/17 18:41 Blood Culture - Preliminary Blood No growth at 1 day 02/21/17 14:15 MRSA Surveillance Culture - Preliminary Nares No MRSA isolated. DS: Provider Date of admission: 02/22/17 11:34 Primary care physician: . No PCP Attending physician on admission: Chuy Cardozo MD Consults: 02/21/17 14:13 Consult to Case Mgmt/Social Srvs [CONS] Routine Reason for Case Mgmt/Social Srvs: Discharge Planning Consult to Physician [CONS] Routine Comment: Chest pain Consulting Provider: Jose Snyder Consulting Provider Notified: Yes Consult to Specialist Group: Cardiology Person Notified: VAN Date Notified: 02/21/17 Time Notified: 14:25 02/21/17 14:26 Consult to Dietitian [CONS] Routine Reason for Dietitian: Dietary Consult Discharging clinician: Chuy Cardozo MD
[2017-02-23 08:14] VITALS: BP 122/59
[2017-02-23] MEDS: INSULIN LISPRO 100 UNIT/ML SUBCUT SCH (08:58)
[2017-02-23] MEDS: INSULIN GLARGINE 100 UNIT/ML SUBCUT SCH (08:58)
[2017-02-23] MEDS: PANTOPRAZOLE 40 MG TABLET PO SCH (08:59)
[2017-02-23] MEDS: MAGNESIUM CHLORIDE 64 MG TABLET PO SCH (08:59)
[2017-02-23] MEDS: POTASSIUM CHLORIDE 8 MEQ CAPSULE PO SCH (08:59)
[2017-02-23] MEDS: CARVEDILOL 25 MG TABLET PO SCH (08:59)
[2017-02-23] MEDS: LOVASTATIN 20 MG TABLET PO SCH (08:59)
[2017-02-23] MEDS: LISINOPRIL 20 MG TABLET PO SCH (08:59)
[2017-02-23] MEDS: DOCUSATE SODIUM 100 MG CAPSULE PO SCH (08:59)
== END 2017-02-23 11:20 | disposition home or self-care (01) | DRG 313 ==
LOC: N.EDINP 10:02 → N.ED 10:02 → N.ICU 14:06 → N.TELEN 18:58
PROVIDERS: ADMIT Internal Medicine; ATTEND Internal Medicine

== ENCOUNTER 2022-01-01 15:24 | Inpatient (IN) ==
[2022-01-01] MEDS ORDERED: hydrALAZINE 20 MG/1 ML VIAL IV STA ×2 (17:48→19:45)
[2022-01-01] MEDS ORDERED: FUROSEMIDE 20 MG/2 ML VIAL IV STA (17:48)
[2022-01-01] MEDS ORDERED: FUROSEMIDE 40 MG/4 ML VIAL IV STA ×2 (17:51→19:11)
[2022-01-01] MEDS ORDERED: FUROSEMIDE 40 MG/4 ML VIAL ONE (17:52)
[2022-01-01 17:56] LABS: Basophils % 0.7 % (0.0-0.8); Eosinophils # 0.3 10*3/uL (0.0-0.87); Eosinophils % 4.4 % (0.00-10.9); Hematocrit 22.5 VOL% (35.7-47.0); Hemoglobin 6.8 GM/DL (12.0-16.0); Immature Granulocytes Absolute 0.06 #; Lymphocytes # 1.2 10*3/uL (1.4-4.0); Lymphocytes % 20.4 % (21.3-54.2); Mean Corpuscular HGB Conc 30.2 GM/DL (32-36); Mean Corpuscular Volume 71.4 FL (87-102); Monocytes # 0.4 10*3/uL (0.11-0.8); Monocytes % 6.5 % (1.7-12.7); Platelet Count 216 T/CUMM (130-400); Red Blood Count 3.15 MC/CUMM (3.8-5.5)
[2022-01-01 18:03] LABS: PT Patient Result 10.6 SECS (10.5-12.0)
[2022-01-01 18:13] LABS: Alanine Aminotransferase 96 U/L (13-56); Albumin 2.9 G/DL (3.4-5.0); Alkaline Phosphatase 113 U/L (45-117); Aspartate Amino Transferase 41 U/L (0-37); Bilirubin,Total < 0.39 MG/DL (0.20-1.00); Blood Urea Nitrogen 62 MG/DL (7-18); Calcium 8.3 MG/DL (8.5-10.1); Carbon Dioxide 23 MMOL/L (21-32); Chloride 115 MMOL/L (98-107); Glucose 103 MG/DL (74-106); Potassium 4.9 MMOL/L (3.5-5.1); Sodium 143 MMOL/L (136-145); Total Protein 6.2 G/DL (6.4-8.2)
[2022-01-01] MEDS ORDERED: PANTOPRAZOLE INJ 80 MG in SODIUM CHLORIDE 0.9% 100 ML IV ONE (19:10)
[2022-01-01] MEDS ORDERED: SODIUM CHLORIDE 0.9% 1,000 ML IV PRN ×2 (19:10→20:22)
[2022-01-01] MEDS ORDERED: ALBUTEROL 2.5 MG/3 ML NEB RESP TX PRN (20:07)
[2022-01-01] MEDS ORDERED: ONDANSETRON 4 MG/2 ML VIAL IV PRN (20:09)
[2022-01-01] MEDS ORDERED: PANTOPRAZOLE 40 MG VIAL IV ONE (20:20)
[2022-01-01] MEDS ORDERED: GLUCAGON 1 MG VIAL IM PRN (20:31)
[2022-01-01] MEDS ORDERED: DEXTROSE 10% 250 ML BAG IV PRN (20:35)
[2022-01-01] MEDS ORDERED: carvediloL 25 MG TABLET PO SCH (21:00)
[2022-01-01 21:21] LABS: Ferritin 29.1 ng/mL (8-252)
[2022-01-01 21:22] LABS: INR 0.9; PT Patient Result 10.5 SECS (10.5-12.0)
[2022-01-01 21:27] LABS: Thyroid Stimulating Hormone 2.14 uIU/ml (0.358-3.74)
[2022-01-01] MEDS ORDERED: niCARdipine 25 MG/10 ML VIAL IV ONE (21:28)
[2022-01-01] MEDS: niCARdipine INJ 25 MG in SODIUM CHLORIDE 0.9% 240 ML IV PRN (21:35)
[2022-01-01] MEDS: INSULIN REGULAR 100 UNIT/ML SUBCUT SCH (22:11)
[2022-01-01 22:34] LABS: Bacteria,Urine Occasional /HPF (Few); RBC,Urine 2 /HPF (0-4); Urine Color Yellow (Yellow)
[2022-01-01 22:35] LABS: Bilirubin,Urine Negative (Negative); Blood, Urine Trace mg/dL (Negative); Glucose,Urine (UA) Negative (Negative); Ketones,Urine Negative (Negative); Nitrite,Urine Negative (Negative); Protein,Urine 100 mg/dL (Negative); Urine Appearance Clear (Clear); Urine Urobilinogen 0.2 eU/dL (<2.0)
[2022-01-01] MEDS: PANTOPRAZOLE INJ 200 MG in SODIUM CHLORIDE 0.9% 250 ML IV SCH (22:54)
[2022-01-02 01:36] LABS: Basophils # 0.1 10*3/uL (0.0-0.2); Basophils % 0.6 % (0.0-0.8); Eosinophils # 0.2 10*3/uL (0.0-0.87); Eosinophils % 2.6 % (0.00-10.9); Hematocrit 25.6 VOL% (35.7-47.0); Hemoglobin 8.1 GM/DL (12.0-16.0); Immature Granulocytes % 0.7 %; Immature Granulocytes Absolute 0.06 #; Lymphocytes % 11.7 % (21.3-54.2); Mean Corpuscular HGB Conc 31.6 GM/DL (32-36); Mean Corpuscular Volume 73.4 FL (87-102); Mean Platelet Volume 10.8 FL (9.6-12.0); Monocytes # 0.6 10*3/uL (0.11-0.8); Monocytes % 6.7 % (1.7-12.7); NRBC # 0.02 10*3/uL; Neutrophils % 77.7 % (38.7-73.9); Platelet Count 212 T/CUMM (130-400); Red Blood Count 3.49 MC/CUMM (3.8-5.5); Red Cell Distribution Width 21.4 % (9.3-17.3); White Blood Count 8.7 T/CUMM (4-12)
[2022-01-02] MEDS ORDERED: niCARdipine 25 MG/10 ML VIAL IV ONE (01:45)
[2022-01-02] MEDS: niCARdipine INJ 25 MG in SODIUM CHLORIDE 0.9% 240 ML IV PRN ×2 (01:51→05:11)
[2022-01-02 01:53] LABS: Hypochromia Slight; Platelet Estimate Normal
[2022-01-02 01:54] LABS: Microcytosis Slight
[2022-01-02 02:03] LABS: Risk Ratio 5.64; VLDL Cholesterol 45.8 MG/DL
[2022-01-02] MEDS: LEVOTHYROXINE 50 MCG TABLET PO SCH (05:56)
[2022-01-02] MEDS ORDERED: FUROSEMIDE 40 MG/4 ML VIAL IV SCH (06:00)
[2022-01-02] MEDS ORDERED: hydrALAZINE 20 MG/1 ML VIAL IV PRN (08:30)
[2022-01-02] MEDS: carvediloL 12.5 MG TABLET PO SCH ×2 (08:50→20:32)
[2022-01-02] MEDS ORDERED: [UNRECOGNIZED DRUG - OTHER] SUBCUT SCH (09:00)
[2022-01-02] MEDS ORDERED: PANTOPRAZOLE 40 MG TABLET PO SCH (09:00)
[2022-01-02] MEDS ORDERED: OMEPRAZOLE 20 MG PO SCH (09:00)
[2022-01-02] MEDS ORDERED: INSULIN DETEMIR U SUBCUT SCH (09:00)
[2022-01-02] MEDS ORDERED: LOVASTATIN 40 MG PO SCH (09:00)
[2022-01-02] MEDS: INSULIN REGULAR 100 UNIT/ML SUBCUT SCH ×4 (09:04→20:33)
[2022-01-02] MEDS: LABETALOL INJ 200 MG in SODIUM CHLORIDE 0.9% 160 ML IV SCH ×2 (11:40→13:15)
[2022-01-02] MEDS: PANTOPRAZOLE INJ 200 MG in SODIUM CHLORIDE 0.9% 250 ML IV SCH (21:12)
[2022-01-03 04:13] LABS: Protein/Creatinine Ratio,Urine 1.8 RATIO
[2022-01-03] MEDS: LEVOTHYROXINE 50 MCG TABLET PO SCH (05:32)
[2022-01-03 05:53] LABS: Basophils % 0.4 % (0.0-0.8); Eosinophils # 0.4 10*3/uL (0.0-0.87); Eosinophils % 5.1 % (0.00-10.9); Hematocrit 28.5 VOL% (35.7-47.0); Hemoglobin 9.2 GM/DL (12.0-16.0); Immature Granulocytes % 0.8 %; Immature Granulocytes Absolute 0.06 #; Lymphocytes % 13.6 % (21.3-54.2); Mean Corpuscular HGB Conc 32.3 GM/DL (32-36); Mean Corpuscular Volume 77.2 FL (87-102); Mean Platelet Volume 11.2 FL (9.6-12.0); Monocytes # 0.6 10*3/uL (0.11-0.8); Monocytes % 8.8 % (1.7-12.7); Neutrophils % 71.3 % (38.7-73.9); Platelet Count 178 T/CUMM (130-400); Red Blood Count 3.69 MC/CUMM (3.8-5.5); Red Cell Distribution Width 22.9 % (9.3-17.3); White Blood Count 7.3 T/CUMM (4-12)
[2022-01-03 06:23] LABS: Osmolality,Calculated 303.3 MOS/KG (273-304); Potassium 4.4 MMOL/L (3.5-5.1)
[2022-01-03 06:28] LABS: Uric Acid 7.4 MG/DL (2.6-6.0)
[2022-01-03] MEDS: INSULIN REGULAR 100 UNIT/ML SUBCUT SCH ×4 (08:00→21:04)
[2022-01-03] MEDS: PANTOPRAZOLE 40 MG VIAL IV SCH ×2 (09:09→21:03)
[2022-01-03] MEDS: carvediloL 12.5 MG TABLET PO SCH ×2 (09:09→21:03)
[2022-01-03] MEDS: LABETALOL INJ 200 MG in SODIUM CHLORIDE 0.9% 160 ML IV SCH ×2 (11:38→17:40)
[2022-01-03] MEDS: hydrALAZINE 25 MG TABLET PO SCH ×2 (14:57→21:03)
[2022-01-04] MEDS: LEVOTHYROXINE 50 MCG TABLET PO SCH (05:52)
[2022-01-04 06:01] LABS: Basophils % 0.6 % (0.0-0.8); Eosinophils # 0.3 10*3/uL (0.0-0.87); Eosinophils % 4.9 % (0.00-10.9); Hematocrit 27.1 VOL% (35.7-47.0); Hemoglobin 8.7 GM/DL (12.0-16.0); Immature Granulocytes % 0.6 %; Immature Granulocytes Absolute 0.04 #; Lymphocytes # 0.9 10*3/uL (1.4-4.0); Lymphocytes % 13.3 % (21.3-54.2); Mean Corpuscular HGB Conc 32.1 GM/DL (32-36); Mean Corpuscular Volume 77.2 FL (87-102); Monocytes # 0.7 10*3/uL (0.11-0.8); Neutrophils % 70.6 % (38.7-73.9); Platelet Count 180 T/CUMM (130-400); Red Blood Count 3.51 MC/CUMM (3.8-5.5); Red Cell Distribution Width 23.3 % (9.3-17.3)
[2022-01-04 06:15] LABS: Calcium 7.8 MG/DL (8.5-10.1); Osmolality,Calculated 298.4 MOS/KG (273-304); Potassium 4.7 MMOL/L (3.5-5.1)
[2022-01-04] MEDS: hydrALAZINE 25 MG TABLET PO SCH ×3 (08:37→21:05)
[2022-01-04] MEDS: carvediloL 12.5 MG TABLET PO SCH (08:37)
[2022-01-04] MEDS: INSULIN REGULAR 100 UNIT/ML SUBCUT SCH ×4 (08:38→21:05)
[2022-01-04] MEDS: PANTOPRAZOLE 40 MG TABLET PO SCH ×2 (11:00→21:05)
[2022-01-04] MEDS ORDERED: DIGOXIN 0.125 MG TABLET PO SCH (13:00)
[2022-01-04] MEDS ORDERED: ACETAMINOPHEN 325 MG TABLET PO PRN (15:50)
[2022-01-04] MEDS ORDERED: ACETAMINOPHEN 325 MG TABLET ONE (15:53)
[2022-01-04] MEDS: carvediloL 25 MG TABLET PO SCH (21:05)
[2022-01-05] MEDS: LEVOTHYROXINE 50 MCG TABLET PO SCH (06:30)
[2022-01-05] MEDS: INSULIN REGULAR 100 UNIT/ML SUBCUT SCH ×4 (08:30→21:22)
[2022-01-05] MEDS: PANTOPRAZOLE 40 MG TABLET PO SCH ×2 (08:44→22:16)
[2022-01-05] MEDS: hydrALAZINE 25 MG TABLET PO SCH ×3 (08:44→22:15)
[2022-01-05] MEDS: carvediloL 25 MG TABLET PO SCH ×2 (08:44→22:16)
[2022-01-05] MEDS ORDERED: BISACODYL 5 MG TABLET PO ONE (12:00)
[2022-01-05] MEDS: SODIUM CHLORIDE 0.9% 1,000 ML IV SCH (12:51)
[2022-01-05] MEDS ORDERED: ETOMIDATE 20 MG/10 ML VIAL IV ONE (14:18)
[2022-01-05] MEDS ORDERED: LIDOCAINE 2% 5 ML VIAL ONE (14:18)
[2022-01-05] MEDS ORDERED: propofoL 200 MG/20 ML VIAL IV ONE (14:18)
[2022-01-05] MEDS ORDERED: DIGOXIN 0.125 MG TABLET PO SCH (15:00)
[2022-01-05] MEDS ORDERED: POLYETHYLENE GLYCOL POWDER 255 GM BOTTLE PO ONE (18:00)
[2022-01-05] MEDS ORDERED: FUROSEMIDE 100 MG/10 ML VIAL IV ONE ×2 (18:13→20:00)
[2022-01-05] MEDS ORDERED: MAGNESIUM CITRATE 300 ML BOTTLE PO ONE (21:00)
[2022-01-06 05:29] LABS: PT Patient Result 10.9 SECS (10.5-12.0)
[2022-01-06 05:38] LABS: Calcium 8.3 MG/DL (8.5-10.1); Osmolality,Calculated 301.8 MOS/KG (273-304); Potassium 5.1 MMOL/L (3.5-5.1)
[2022-01-06] MEDS: INSULIN REGULAR 100 UNIT/ML SUBCUT SCH ×4 (06:32→21:57)
[2022-01-06] MEDS ORDERED: LACTATED RINGERS 1,000 ML IV SCH (08:00)
[2022-01-06] MEDS ORDERED: DEXTROSE 50% 25 GM/50 ML VIAL IV PRN (10:17)
[2022-01-06] MEDS: hydrALAZINE 25 MG TABLET PO SCH ×3 (10:37→21:37)
[2022-01-06] MEDS: carvediloL 25 MG TABLET PO SCH ×2 (10:38→21:37)
[2022-01-06] MEDS: SODIUM CHLORIDE 0.9% 1,000 ML IV SCH (10:38)
[2022-01-06] MEDS: PANTOPRAZOLE 40 MG TABLET PO SCH (10:38)
[2022-01-06] MEDS: LEVOTHYROXINE 50 MCG TABLET PO SCH (10:38)
[2022-01-07 03:59] VITALS: BP 125/50
[2022-01-07 04:37] LABS: Basophils % 0.6 % (0.0-0.8); Eosinophils # 0.2 10*3/uL (0.0-0.87); Eosinophils % 2.6 % (0.00-10.9); Hematocrit 26.7 VOL% (35.7-47.0); Hemoglobin 8.2 GM/DL (12.0-16.0); Immature Granulocytes % 0.6 %; Immature Granulocytes Absolute 0.04 #; Lymphocytes # 0.7 10*3/uL (1.4-4.0); Lymphocytes % 9.6 % (21.3-54.2); Mean Corpuscular HGB Conc 30.7 GM/DL (32-36); Mean Corpuscular Volume 76.9 FL (87-102); Mean Platelet Volume 10.2 FL (9.6-12.0); Monocytes # 0.6 10*3/uL (0.11-0.8); Monocytes % 8.8 % (1.7-12.7); NRBC # 0.03 10*3/uL; Neutrophils % 77.8 % (38.7-73.9); Platelet Count 207 T/CUMM (130-400); Red Blood Count 3.47 MC/CUMM (3.8-5.5); Red Cell Distribution Width 23.6 % (9.3-17.3)
[2022-01-07 04:52] LABS: Calcium 8.1 MG/DL (8.5-10.1); Osmolality,Calculated 300.1 MOS/KG (273-304); Potassium 4.4 MMOL/L (3.5-5.1)
[2022-01-07 04:56] LABS: Hypochromia 1+
[2022-01-07 04:57] LABS: Microcytosis 1+; Ovalocytes Slight; Platelet Estimate Normal; Polychromasia Slight; Target Cells Few
[2022-01-07] MEDS: LEVOTHYROXINE 50 MCG TABLET PO SCH (06:27)
[2022-01-07] MEDS: hydrALAZINE 25 MG TABLET PO SCH (08:33)
[2022-01-07] MEDS: carvediloL 25 MG TABLET PO SCH (08:33)
[2022-01-07] MEDS: INSULIN REGULAR 100 UNIT/ML SUBCUT SCH (08:33)
[2022-01-07] MEDS: PANTOPRAZOLE 40 MG TABLET PO SCH (08:33)
== END 2022-01-07 11:18 | disposition home or self-care (01) | DRG 305 ==
LOC: N.ED 15:24 → N.ICU 20:07 → SUATTDRO 20:07 → N.ICU 21:40
PROVIDERS: ADMIT Family Medicine; ATTEND Internal Medicine